=== PATIENT | female | born 1975 | race Caucasian/White ===

== ENCOUNTER → 2017-09-12 | Outpatient (CLI) | payer OTHER ==
[~2017-09-12] MED LIST: ACETAMINOPHEN-1 EAC1 PO; ACYCLOVIR 400400 MG PO; AMOXICILLIN 50500 MG PO; BACTRIM DS TAB1 EACH PO; BIRTH CONTROL; CELEXA 20 MG TA20 M1; CIPROFLOXACIN500 M1 PO; DIFLUCAN150 MG PO; DOXYCYCLINE 10100 MG PO; FLAGYL500 MG PO; FLEXERIL PO; GABAPENTIN; HUMALOG100 UNIT/1 SQ; HUMALOG100 UNIT/2 SQ; HUMULIN N100 UNIT/1 SQ; HUMULIN R100 UNIT/M SUBQ; IBUPROFEN 400400 M2 PO; IBUPROFEN 800800 M1 PO; INSULIN; INSULIN SYRING MC; Insulin pump; KEFLEX500 MG PO; LANTUS SUBQ; LANTUS100 UNIT/M SUBQ; LISINOPRIL2.5 MG PO; MEDROLDOSEPACK PO; MOBIC15 MG; NEURONTIN600 MG PO; NORCO 5-325 TA1 EACH PO; NORFLEX100 MG PO; ONDANSETRON ODT4 MG PO; PRAVACHOL40 MG PO; PREDNISONE 10 M10 M1 PO; PRENATAL; PROVENTIL HFA6.7 G1 INH; PROZAC; PROZAC 10 MG CA10 M1 PO; PYRIDIUM200 MG PO; ROBAXIN500 MG PO; TESSALON200 MG PO; XANAX 0.5 MG0.5 M1 PO; ZOFRAN ODT4 MG PO; ZOFRAN4 MG PO; ZOLOFT100 MG PO; [UNRECOGNIZED DRUG - OTHER]; cefuroxime PO
== END ==
LOC: M.ULTRA 07:30
DX: R10.11 Right upper quadrant pain (principal)

== ENCOUNTER 2018-09-21 15:14 | Emergency (ER) | payer OTHER ==
[~2018-09-21] VITALS: Ht 170.2 cm; Wt 70.3 kg
[2018-09-21 15:20] VITALS: BP 133/92
[2018-09-21] MEDS ORDERED: NORCO 5-325 TA1 EACH PO (15:35)
[2018-09-21] MEDS ORDERED: AMOXICILLIN 50500 MG PO (15:35)
[2018-09-21] MEDS ORDERED: LIDOCAINE VISC100 ML PO (15:35)
== END 2018-09-21 17:23 | disposition home or self-care (01) ==
LOC: M.ERS 15:14
DX: K02.9 Dental caries, unspecified (principal); E11.9 Type 2 diabetes mellitus without complications; F17.210 Nicotine dependence, cigarettes, uncomplicated; Z88.1 Allergy status to other antibiotic agents; Z98.890 Other specified postprocedural states; Z79.4 Long term (current) use of insulin

== ENCOUNTER 2021-05-11 10:56 | Emergency (ER) | payer OTHER ==
[~2021-05-11] VITALS: Ht 167.6 cm; Wt 81.7 kg
[~2021-05-11 10:56] MED LIST changes: +LIDOCAINE VISC100 ML PO
[2021-05-11] MEDS ORDERED: DOXYCYCLINE 10100 MG PO (11:48)
[2021-05-11] MEDS ORDERED: APAP W/CODEINE1 TA2 PO (11:48)
[2021-05-11 11:55] VITALS: BP 134/72
== END 2021-05-11 11:56 | disposition home or self-care (01) ==
LOC: M.ERS 10:56
DX: L02.31 Cutaneous abscess of buttock (principal); E11.9 Type 2 diabetes mellitus without complications; F17.210 Nicotine dependence, cigarettes, uncomplicated; Z98.890 Other specified postprocedural states; Z79.899 Other long term (current) drug therapy; Z88.1 Allergy status to other antibiotic agents; Z88.2 Allergy status to sulfonamides